=== PATIENT | male | born 1965 | race Caucasian/White ===

== ENCOUNTER 2016-06-19 18:47 | Emergency (ER) | payer SELFPAY ==
[~2016-06-19] VITALS: Ht 165.1 cm; Wt 70.0 kg
[2016-06-19 19:02] VITALS: BP 165/82; PULSE 89; RESP 16; TEMP 98.2; O2SAT 98
[2016-06-19] MEDS ORDERED: SODIUM CHLORIDE 0.9% FLUSH 5 ML FLUSH IVF PRN (19:15)
[2016-06-19] MEDS ORDERED: AMPICILLIN-SULBACTAM INJ 3 GM in SODIUM CHLORIDE 0.9% INJ 100 ML IV ONE (19:15)
[2016-06-19] MEDS ORDERED: KETOROLAC TROMETHAMINE 30 MG/ML (IVP) VIAL IVP ONE (19:15)
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
== END 2016-06-19 20:48 | disposition left against medical advice (07) ==
LOC: PHED 18:47
DX: S61.451A Open bite of right hand, initial encounter (principal); E11.9 Type 2 diabetes mellitus without complications; F10.10 Alcohol abuse, uncomplicated; F17.210 Nicotine dependence, cigarettes, uncomplicated; Y04.1XXA Assault by human bite, initial encounter; Y99.0 Civilian activity done for income or pay
CPT/HCPCS: 99283